=== PATIENT | female | born 2005 | race Caucasian/White ===

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

== ENCOUNTER 2024-01-08 12:45 | Outpatient (RCR) | payer MEDICAID, SELFPAY ==
[2023-12-15 13:12] VITALS: BMI 30.3
[2023-12-15 13:13] VITALS: BP 116/64; PULSE 88; TEMP 36.8
--- NOTE | 2023-12-15 15:20 | HO.PS.ADMBH ---
HPI Date of Service: 12/15/23 Chief Complaint: depression,anxiety Sources of Information: patient interviewed, chart reviewed and crisis/core team assessment reviewed [facility] [place] Medical History (Updated 12/15/23 @ 13:11 by Elvia Gregory RN) Migraines GERD (gastroesophageal reflux disease) Asthma Chronic back pain IBS (irritable bowel syndrome) Gitelman syndrome POTS (postural orthostatic tachycardia syndrome) Diagnostics Vital Signs (24Hr): Vital Signs - 24 hr 12/15/23 13:13 Temperature 98.2 F Pulse Rate 88 Blood Pressure 116/64 BMI result Body Mass Index 30.3 Meds/Allergies Meds Home Medications ?Medication ?Instructions ?Recorded ?Confirmed ?Type albuterol sulfate 90 mcg/actuation 2 puff inhalation Q4-6H PRN SOB 12/15/23 12/15/23 History aerosol inhaler (Ventolin HFA) amitriptyline 25 mg tablet 25 mg PO BEDTIME 12/15/23 12/15/23 History budesonide-formoterol HFA 160 2 puff inhalation BID 12/15/23 12/15/23 History mcg-4.5 mcg/actuation aerosol inhaler (Symbicort) bupropion HCl 75 mg tablet 75 mg PO QAM 12/15/23 12/15/23 History cetirizine 10 mg tablet 10 mg PO BID 12/15/23 12/15/23 History cholecalciferol (vitamin D3) 25 25 mcg PO DAILY 12/15/23 12/15/23 History mcg (1,000 unit) capsule (Vitamin D3) citalopram 40 mg tablet (Celexa) 40 mg PO QAM 12/15/23 12/15/23 History dicyclomine 10 mg capsule 10 mg PO TID 12/15/23 12/15/23 History fluticasone propionate 50 2 spray intranasal DAILY 12/15/23 12/15/23 History mcg/actuation nasal spray,suspension hydroxyzine HCl 25 mg tablet 25 - 50 mg PO BID PRN anxiety 12/15/23 12/15/23 History magnesium chloride 64 mg 128 mg PO DAILY 12/15/23 12/15/23 History (magnesium chloride) tablet,delayed release (Mag 64) medroxyprogesterone 150 mg/mL 150 mg IM [id number] 12/15/23 12/15/23 History intramuscular suspension ondansetron 4 mg disintegrating 4 mg PO BID PRN Nausea 12/15/23 12/15/23 History tablet potassium chloride 20 mEq 20 meq PO DAILY 12/15/23 12/15/23 History tablet,extended release(part/cryst) (Klor-Con M) topiramate 25 mg tablet 25 mg PO BEDTIME 12/15/23 12/15/23 History tramadol 50 mg tablet 50 mg PO BID severe pain 12/15/23 12/15/23 History Allergies Allergies Allergy/AdvReac Type Severity Reaction Status Date / Time Penicillins [PENICILLINS] Allergy Mild HIVES Unverified 10/24/19 18:16 Sulfa (Sulfonamide Allergy Mild HIVES Unverified 10/24/19 18:16 Antibiotics) [SULFA (SULFONAMIDE ANTIBIOTICS)] shellfish derived Allergy Difficulty Verified 12/15/23 13:12 Breathing shrimp Allergy Difficulty Verified 12/15/23 13:12 Breathing liquid antibiotics Allergy Hives Uncoded 12/15/23 13:12 Assessment & Plan Certification I certify that partial hospital treatment is medically necessary due to the symptoms and problems resulting from the patient's mental illness and the failure to treat the patient at the partial hospital level of care would likely result in the patient requiring inpatient psychiatric care which could not be prevented at a less intensive level of care. Time Spent With Patient Time: Total time managing care of this patient today ____ minutes.
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
--- NOTE | 2023-12-28 22:03 | HO.PHPPROGNO ---
Subjective Subjective Date of Service: 12/28/23 Reason For Visit: depression,anxiety Diagnostics Vital Signs (24Hr): BMI result Body Mass Index 30.3 Assessment & Plan Assessment & Plan (1) MDD (major depressive disorder), recurrent episode: Status: Acute Code(s): F33.9 - Major depressive disorder, recurrent, unspecified (2) ADHD (attention deficit hyperactivity disorder): Status: Acute Code(s): F90.9 - Attention-deficit hyperactivity disorder, unspecified type (3) TORIBIO (generalized anxiety disorder): Status: Acute Code(s): F41.1 - Generalized anxiety disorder Plan start aripiprazole 2 mg qhs (consider titration until therapeutic) start guanfacine ER 1 mg qam continue Wellbutrin SR 100 mg qam (may consider titrating to 150 mg along w guanfacine, once Abilify titrated) continue citalopram 40 mg qd (pt taking in AM, suggested taking later in day to see if contributing to tiredness, if so move to ) will plan to decrease dose of citalopram to 30 mg next week if tolerated ABilify continue other regular medications? Routine lab work ordered as indicated EKG, routine for baseline QTc for medication considerations as indicated UDS as indicated Patient educated on: diagnosis and medication risk/benefits Informed Consent: understands Reason for contiued partial hosp. stay Substantial Risk for: harm to self, inability to function, rapid decompensation and med/psych decompensation Certification I certify that partial hospital treatment is medically necessary due to the symptoms and problems resulting from the patient's mental illness and the failure to treat the patient at the partial hospital level of care would likely result in the patient requiring inpatient psychiatric care which could not be prevented at a less intensive level of care. Total time managing care of this patient today ____ minutes. Discharge Plan Discharge Attending provider: Radha Anthony Medications: New bupropion HCl [Wellbutrin SR] 100 mg tablet sustained-release 12 hr 100 mg PO QAM Qty: 20 0RF aripiprazole 2 mg tablet 2 mg PO BEDTIME Qty: 20 0RF guanfacine 1 mg tablet extended release 24 hr 1 mg PO DAILY Qty: 20 0RF citalopram 20 mg tablet 30 mg PO DAILY Qty: 20 0RF Continued cetirizine 10 mg tablet 10 mg PO BID Rx Instructions: Last filled 10/06/23 90 day supply. amitriptyline 25 mg tablet 25 mg PO BEDTIME Patient Comments: Patient takes at HS. Last filled 11/27/23 90 day supply. Rx Instructions: Last filled 11/27/23 #90 dicyclomine 10 mg capsule 10 mg PO TID Rx Instructions: Last filled 12/12/23 topiramate 25 mg tablet 25 mg PO BEDTIME Patient Comments: Last filled 11/15/23. 90 day supply. potassium chloride [Klor-Con M20] 20 mEq tablet,ER particles/crystals 20 meq PO DAILY Rx Instructions: Last filled 11/27/23 hydroxyzine HCl 25 mg tablet 25 - 50 mg PO BID PRN (Reason: anxiety) Rx Instructions: Last filled 12/07/23. 30 day supply. albuterol sulfate [Ventolin HFA] 90 mcg/actuation HFA aerosol inhaler 2 puff INHALATION Q4-6H PRN (Reason: SOB) Rx Instructions: Last filled 03/2023 ondansetron 4 mg tablet,disintegrating 4 mg PO BID PRN (Reason: Nausea) Rx Instructions: Last filled 11/17/23 fluticasone propionate 50 mcg/actuation spray,suspension 2 spray intranasal DAILY Rx Instructions: Last filled 09/19/23 90 day supply. medroxyprogesterone 150 mg/mL suspension 150 mg IM [id number] Rx Instructions: Last filled 12/13/23 budesonide-formoterol [Symbicort] 160-4.5 mcg/actuation HFA aerosol inhaler 2 puff INHALATION BID Rx Instructions: Last filled 11/22/23 magnesium chloride [Mag 64] 64 mg tablet,delayed release (DR/EC) 128 mg PO DAILY Rx Instructions: Last filled 10/23/23. 90 day supply. cholecalciferol (vitamin D3) [Vitamin D3] 25 mcg (1,000 unit) Capsule 25 mcg PO DAILY Rx Instructions: Last filled 10/23/23. 90 day supply Discontinued bupropion HCl 75 mg tablet 75 mg PO QAM Rx Instructions: Last filled 12/07/23 #30 No Action citalopram [Celexa] 40 mg tablet 40 mg PO QAM Rx Instructions: Last filled 12/12/23 #30 tramadol 50 mg tablet 50 mg PO BID Rx Instructions: Last filled 11/17/23. 20 day supply. Print Language: Turkmen
--- NOTE | 2023-12-28 23:19 | HO.PHPPROGNO ---
Subjective Subjective Date of Service: 12/28/23 Reason For Visit: depression,anxiety Diagnostics Vital Signs (24Hr): BMI result Body Mass Index 30.3 Assessment & Plan Assessment & Plan Plan start aripiprazole 2 mg qhs start guanfacine ER 1 mg qam Certification I certify that partial hospital treatment is medically necessary due to the symptoms and problems resulting from the patient's mental illness and the failure to treat the patient at the partial hospital level of care would likely result in the patient requiring inpatient psychiatric care which could not be prevented at a less intensive level of care. Total time managing care of this patient today ____ minutes. Discharge Plan Discharge Attending provider: Radha Anthony Medications: New bupropion HCl [Wellbutrin SR] 100 mg tablet sustained-release 12 hr 100 mg PO QAM Qty: 20 0RF aripiprazole 2 mg tablet 2 mg PO BEDTIME Qty: 20 0RF guanfacine 1 mg tablet extended release 24 hr 1 mg PO DAILY Qty: 20 0RF citalopram 20 mg tablet 30 mg PO DAILY Qty: 20 0RF Continued cetirizine 10 mg tablet 10 mg PO BID Rx Instructions: Last filled 10/06/23 90 day supply. amitriptyline 25 mg tablet 25 mg PO BEDTIME Patient Comments: Patient takes at HS. Last filled 11/27/23 90 day supply. Rx Instructions: Last filled 11/27/23 #90 dicyclomine 10 mg capsule 10 mg PO TID Rx Instructions: Last filled 12/12/23 topiramate 25 mg tablet 25 mg PO BEDTIME Patient Comments: Last filled 11/15/23. 90 day supply. potassium chloride [Klor-Con M20] 20 mEq tablet,ER particles/crystals 20 meq PO DAILY Rx Instructions: Last filled 11/27/23 hydroxyzine HCl 25 mg tablet 25 - 50 mg PO BID PRN (Reason: anxiety) Rx Instructions: Last filled 12/07/23. 30 day supply. albuterol sulfate [Ventolin HFA] 90 mcg/actuation HFA aerosol inhaler 2 puff INHALATION Q4-6H PRN (Reason: SOB) Rx Instructions: Last filled 03/2023 ondansetron 4 mg tablet,disintegrating 4 mg PO BID PRN (Reason: Nausea) Rx Instructions: Last filled 11/17/23 fluticasone propionate 50 mcg/actuation spray,suspension 2 spray intranasal DAILY Rx Instructions: Last filled 09/19/23 90 day supply. medroxyprogesterone 150 mg/mL suspension 150 mg IM [id number] Rx Instructions: Last filled 12/13/23 budesonide-formoterol [Symbicort] 160-4.5 mcg/actuation HFA aerosol inhaler 2 puff INHALATION BID Rx Instructions: Last filled 11/22/23 magnesium chloride [Mag 64] 64 mg tablet,delayed release (DR/EC) 128 mg PO DAILY Rx Instructions: Last filled 10/23/23. 90 day supply. cholecalciferol (vitamin D3) [Vitamin D3] 25 mcg (1,000 unit) Capsule 25 mcg PO DAILY Rx Instructions: Last filled 10/23/23. 90 day supply Discontinued bupropion HCl 75 mg tablet 75 mg PO QAM Rx Instructions: Last filled 12/07/23 #30 No Action citalopram [Celexa] 40 mg tablet 40 mg PO QAM Rx Instructions: Last filled 12/12/23 #30 tramadol 50 mg tablet 50 mg PO BID Rx Instructions: Last filled 11/17/23. 20 day supply. Print Language: Citizen Of [place]
--- NOTE | 2024-01-01 23:46 | P.PNPSP_ITS ---
Subjective Subjective Date of Service: 01/01/24 Reason For Visit: depression,anxiety Diagnostics Vital Signs (24Hr): BMI result Body Mass Index 30.3 Assessment & Plan Certification I certify that partial hospital treatment is medically necessary due to the symptoms and problems resulting from the patient's mental illness and the failure to treat the patient at the partial hospital level of care would likely result in the patient requiring inpatient psychiatric care which could not be prevented at a less intensive level of care. Total time managing care of this patient today ____ minutes. Discharge Plan Discharge Attending provider: Radha Anthony Medications: New bupropion HCl [Wellbutrin SR] 100 mg tablet sustained-release 12 hr 100 mg PO QAM Qty: 20 0RF aripiprazole 2 mg tablet 2 mg PO BEDTIME Qty: 20 0RF guanfacine 1 mg tablet extended release 24 hr 1 mg PO DAILY Qty: 20 0RF citalopram 20 mg tablet 30 mg PO DAILY Qty: 20 0RF Continued cetirizine 10 mg tablet 10 mg PO BID Rx Instructions: Last filled 10/06/23 90 day supply. amitriptyline 25 mg tablet 25 mg PO BEDTIME Patient Comments: Patient takes at HS. Last filled 11/27/23 90 day supply. Rx Instructions: Last filled 11/27/23 #90 dicyclomine 10 mg capsule 10 mg PO TID Rx Instructions: Last filled 12/12/23 topiramate 25 mg tablet 25 mg PO BEDTIME Patient Comments: Last filled 11/15/23. 90 day supply. potassium chloride [Klor-Con M20] 20 mEq tablet,ER particles/crystals 20 meq PO DAILY Rx Instructions: Last filled 11/27/23 hydroxyzine HCl 25 mg tablet 25 - 50 mg PO BID PRN (Reason: anxiety) Rx Instructions: Last filled 12/07/23. 30 day supply. albuterol sulfate [Ventolin HFA] 90 mcg/actuation HFA aerosol inhaler 2 puff INHALATION Q4-6H PRN (Reason: SOB) Rx Instructions: Last filled 03/2023 ondansetron 4 mg tablet,disintegrating 4 mg PO BID PRN (Reason: Nausea) Rx Instructions: Last filled 11/17/23 fluticasone propionate 50 mcg/actuation spray,suspension 2 spray intranasal DAILY Rx Instructions: Last filled 09/19/23 90 day supply. medroxyprogesterone 150 mg/mL suspension 150 mg IM [id number] Rx Instructions: Last filled 12/13/23 budesonide-formoterol [Symbicort] 160-4.5 mcg/actuation HFA aerosol inhaler 2 puff INHALATION BID Rx Instructions: Last filled 11/22/23 magnesium chloride [Mag 64] 64 mg tablet,delayed release (DR/EC) 128 mg PO DAILY Rx Instructions: Last filled 10/23/23. 90 day supply. cholecalciferol (vitamin D3) [Vitamin D3] 25 mcg (1,000 unit) Capsule 25 mcg PO DAILY Rx Instructions: Last filled 10/23/23. 90 day supply Discontinued bupropion HCl 75 mg tablet 75 mg PO QAM Rx Instructions: Last filled 12/07/23 #30 No Action citalopram [Celexa] 40 mg tablet 40 mg PO QAM Rx Instructions: Last filled 12/12/23 #30 tramadol 50 mg tablet 50 mg PO BID Rx Instructions: Last filled 11/17/23. 20 day supply. Print Language: Maltese
--- NOTE | 2024-01-08 16:55 | HO.PHPPROGNO ---
Subjective Subjective Date of Service: 01/08/24 Reason For Visit: depression,anxiety Mental Status Exam Mental Status Exam Narrative: Alert, oriented, in no acute distress. Lip piercing. Groomed. FIdgets with hands, but remains seated and calm, cooperative, engaged. No psychomotor agitation or neurovegetative retardation. Eye contact avoidant. Mood anxious, depressed affect constricted. Speech normal. Thought process linear, coherent. Thought content related to stressors, denies any hopelessness or SI. Denies any aggressive ideation or HI. No paranoia or delusional content elicited. No evidence of psychosis. Insight and judgment - fair but adequate. Diagnostics Vital Signs (24Hr): BMI result Body Mass Index 30.3 Assessment & Plan Assessment & Plan (1) MDD (major depressive disorder), recurrent episode: Status: Acute Code(s): F33.9 - Major depressive disorder, recurrent, unspecified (2) ADHD (attention deficit hyperactivity disorder): Status: Acute Code(s): F90.9 - Attention-deficit hyperactivity disorder, unspecified type Assessment and Plan: dx in 3rd grade r/o PDD or other developmental disorder (3) TORIBIO (generalized anxiety disorder): Status: Acute Code(s): F41.1 - Generalized anxiety disorder Assessment and Plan: Social anxiety r/o other trauma and stress-related disorder (4) Cannabis use with anxiety disorder: Status: Acute Code(s): F12.980 - Cannabis use, unspecified with anxiety disorder Plan Admit to [facility] reviewed: abrefile, BP ? bpm continue other regular medications? Routine lab work ordered as indicated EKG, routine for baseline QTc for medication considerations as indicated [facility] Certification I certify that partial hospital treatment is medically necessary due to the symptoms and problems resulting from the patient's mental illness and the failure to treat the patient at the partial hospital level of care would likely result in the patient requiring inpatient psychiatric care which could not be prevented at a less intensive level of care. Total time managing care of this patient today ____ minutes. Discharge Plan Discharge Attending provider: Radha Anthony Medications: New bupropion HCl [Wellbutrin SR] 100 mg tablet sustained-release 12 hr 100 mg PO QAM Qty: 20 0RF citalopram 20 mg tablet 30 mg PO DAILY Qty: 20 0RF cholecalciferol (vitamin D3) [Vitamin D3] 50 mcg (2,000 unit) capsule 50 mcg PO DAILY Qty: 30 1RF lorazepam 0.5 mg tablet 0.25 - 0.5 mg PO DAILY PRN (Reason: anxiety) Qty: 10 0RF mecobalamin (vitamin B12) 1,000 mcg tablet,chewable 1,000 mcg PO DAILY Qty: 30 1RF Continued cetirizine 10 mg tablet 10 mg PO BID Rx Instructions: Last filled 10/06/23 90 day supply. amitriptyline 25 mg tablet 25 mg PO BEDTIME Patient Comments: Patient takes at HS. Last filled 11/27/23 90 day supply. Rx Instructions: Last filled 11/27/23 #90 dicyclomine 10 mg capsule 10 mg PO TID Rx Instructions: Last filled 12/12/23 topiramate 25 mg tablet 25 mg PO BEDTIME Patient Comments: Last filled 11/15/23. 90 day supply. tramadol 50 mg tablet 50 mg PO BID PRN (Reason: severe pain) Rx Instructions: Last filled 11/17/23. 20 day supply. potassium chloride [Klor-Con M20] 20 mEq tablet,ER particles/crystals 20 meq PO DAILY Rx Instructions: Last filled 11/27/23 hydroxyzine HCl 25 mg tablet 25 - 50 mg PO BID PRN (Reason: anxiety) Rx Instructions: Last filled 12/07/23. 30 day supply. albuterol sulfate [Ventolin HFA] 90 mcg/actuation HFA aerosol inhaler 2 puff INHALATION Q4-6H PRN (Reason: SOB) Rx Instructions: Last filled 03/2023 ondansetron 4 mg tablet,disintegrating 4 mg PO BID PRN (Reason: Nausea) Rx Instructions: Last filled 11/17/23 fluticasone propionate 50 mcg/actuation spray,suspension 2 spray intranasal DAILY Rx Instructions: Last filled 09/19/23 90 day supply. medroxyprogesterone 150 mg/mL suspension 150 mg IM [id number] Rx Instructions: Last filled 12/13/23 budesonide-formoterol [Symbicort] 160-4.5 mcg/actuation HFA aerosol inhaler 2 puff INHALATION BID Rx Instructions: Last filled 11/22/23 magnesium chloride [Mag 64] 64 mg tablet,delayed release (DR/EC) 128 mg PO DAILY Rx Instructions: Last filled 10/23/23. 90 day supply. cholecalciferol (vitamin D3) [Vitamin D3] 25 mcg (1,000 unit) Capsule 25 mcg PO DAILY Rx Instructions: Last filled 10/23/23. 90 day supply guanfacine 1 mg tablet extended release 24 hr 1 mg PO DAILY Qty: 20 0RF Rx Instructions: take in AM with Wellbutrin - hold for dizziness, lightheadedness aripiprazole 5 mg tablet 5 mg PO BEDTIME Qty: 14 0RF Rx Instructions: take 1 mg (1/2 tablet of 2 mg tab) + 2.5 mg (1/2 tablet of 5 mg tab) = 3.5 mg/day aripiprazole 2 mg tablet 2 mg PO BEDTIME Qty: 20 0RF Rx Instructions: take 1 mg (1/2 tablet of 2 mg tab) + 2.5 mg (1/2 tablet of 5 mg tab) = 3.5 mg/day Discontinued citalopram [Celexa] 40 mg tablet 40 mg PO QAM Rx Instructions: Last filled 12/12/23 #30 bupropion HCl 75 mg tablet 75 mg PO QAM Rx Instructions: Last filled 12/07/23 #30 Stand Alone Forms: Patient Portal Discharge page Patient Education: Depression (DC) Print Language: Indonesian
== END 2024-01-08 23:59 | disposition home or self-care (01) ==
LOC: HO.PHPA 12:45
PROVIDERS: Visit Provider Psychiatry & Neurology Psychiatry
DX: F33.9 Major depressive disorder, recurrent, unspecified (principal); F90.9 Attention-deficit hyperactivity disorder, unspecified type; F41.1 Generalized anxiety disorder; F12.980 Cannabis use, unspecified with anxiety disorder; Z79.899 Other long term (current) drug therapy
CPT/HCPCS: 90791; 90853

== ENCOUNTER → 2024-01-08 12:45 | Outpatient (BNV) | payer OTHER, SELFPAY | PROVIDERS: Visit Provider Psychiatry & Neurology Psychiatry | DX: F33.9 Major depressive disorder, recurrent, unspecified (principal); F90.9 Attention-deficit hyperactivity disorder, unspecified type; F41.1 Generalized anxiety disorder; F12.980 Cannabis use, unspecified with anxiety disorder | CPT/HCPCS: 90792 ==